=== PATIENT | female | born 1945 | race Caucasian/White ===

== ENCOUNTER 2021-02-08 10:34 | Outpatient (CLI) | payer MEDICARE, OTHER | END 2021-02-08 23:59 | disposition home or self-care (01) | LOC: CFH 10:34 | PROVIDERS: ATTEND Family Medicine | DX: M81.0 Age-related osteoporosis without current pathological fracture (principal); N95.9 Unspecified menopausal and perimenopausal disorder | CPT/HCPCS: 77080 ==